=== PATIENT | male | born 1995 | race African-American/Black ===

== ENCOUNTER 2021-07-01 23:40 | Emergency (ER) | payer BC | END 2021-07-02 00:11 | disposition home or self-care (01) | LOC: CSHERS 23:40 | DX: J20.9 Acute bronchitis, unspecified (principal); J45.909 Unspecified asthma, uncomplicated; Z86.16 Personal history of COVID-19 | CPT/HCPCS: 71046 ==

== ENCOUNTER 2022-12-03 22:51 | Emergency (ER) | payer BC | END 2022-12-03 23:17 | disposition home or self-care (01) | LOC: CSHERS 22:51 | DX: Z00.00 Encounter for general adult medical examination without abnormal findings (principal) | CPT/HCPCS: 99283 ==

== ENCOUNTER 2023-11-18 18:02 | Emergency (ER) | payer BC | END 2023-11-18 18:35 | disposition home or self-care (01) | LOC: CSHERS 18:02 | DX: S81.811D Laceration without foreign body, right lower leg, subsequent encounter (principal); W26.0XXD Contact with knife, subsequent encounter ==